=== PATIENT | female | born 2005 | race Caucasian/White ===

== ENCOUNTER 2024-09-14 06:16 | Outpatient (REF) | payer OTHER, SELFPAY ==
--- NOTE | ~2024-09-14 | US_ITS ---
EXAMINATION: US PELVIS TRANSABDOMINAL AND TRANSVAGINAL HISTORY: IRREGULAR MENSES COMPARISON: There are no prior studies for comparison. TECHNIQUE: Transabdominal and endovaginal real-time 2D teague-scale ultrasound was performed. Spectral waveform and color Doppler was also performed. FINDINGS: Uterus: The uterus is normal in size, measuring 6.7 x 3.2 x 3.8 cm. Myometrium has a normal echotexture. No fibroids are identified. Endometrium: The endometrial stripe measures 10 mm in thickness. Right ovary: The right ovary measures 5.2 x 4.1 x 5.0 cm. Multiple cysts are noted, some of which contain low-level internal echoes. In addition, there is a 3.9 x 3.1 x 8.7 cm cystic structure demonstrating a septation and a solid component measuring 2.4 x 2.6 x 2.4 cm. Left ovary: The left ovary measures 2.9 x 2.3 x 1.9 cm. The left ovary is normal in size and echotexture. Spectral waveform and color Doppler analysis of the bilateral ovarian arteries and veins are normal. Pelvic fluid: There is a small amount of free fluid in the cul-de-sac. US/US pelvic and transvaginal IMPRESSION: Enlarged right ovary containing multiple cysts including a complex 3.9 x 3.1 x 8.7 cm septated cyst demonstrating a 2.4 x 2.6 x 2.4 cm solid component. Findings could represent hemorrhagic cysts. Follow-up is recommended in 6 or 10 weeks, and a different time in the patient's menstrual cycle, to document resolution. Electronically signed by: Keegan Lucio MD 09/14/2024 11:38 AM [facility] [place]
== END 2024-09-14 06:17 | disposition home or self-care (01) ==
LOC: HO.UMASIMG 06:16
PROVIDERS: Visit Provider Nurse Practitioner Women's Health
DX: N92.6 Irregular menstruation, unspecified (principal)
CPT/HCPCS: 76830; 76856

== ENCOUNTER → 2024-09-14 10:00 | Outpatient (BNV) | payer OTHER, SELFPAY | PROVIDERS: Visit Provider Radiology Diagnostic Radiology | DX: N92.6 Irregular menstruation, unspecified (principal) | CPT/HCPCS: 76830; 76856 ==

== ENCOUNTER 2024-12-21 09:23 | Outpatient (REF) | payer OTHER, SELFPAY ==
--- NOTE | ~2024-12-21 | US_ITS ---
CLINICAL HISTORY: F U complex right ovarian cyst US pelvis transvaginal Comparison: 09/14/2024 Findings: Transvaginal scanning performed. Anteverted uterus is 6.6 cm length. Normal myometrium. No endometrial lesion, 5 mm thickness. Right ovary 3 x 2.9 x 2.5 cm. Left ovary 3 x 2.4 x 2.4 cm. Normal color Doppler of both ovaries. Previously noted complex right ovarian cystic mass has resolved. There are greater than 9 simple appearing follicles in bilateral ovaries. No free fluid. IMPRESSION: 1. Resolved previously noted right ovarian lesion with multiple ovarian follicles, clinical significance indeterminate. This document has been electronically signed by: Ramirez Montemayor MD on 12/22/2024 08:44:52
== END 2024-12-21 09:24 | disposition home or self-care (01) ==
LOC: HO.UMASIMG 09:23
PROVIDERS: Visit Provider Nurse Practitioner Women's Health
DX: N83.201 Unspecified ovarian cyst, right side (principal)
CPT/HCPCS: 76830; 76856

== ENCOUNTER → 2024-12-21 10:33 | Outpatient (BNV) | payer OTHER, SELFPAY | PROVIDERS: Visit Provider Specialist | DX: N83.291 Other ovarian cyst, right side (principal) | CPT/HCPCS: 76830 ==